=== PATIENT | female | born 1960 | race African-American/Black ===

== ENCOUNTER 2020-10-27 23:19 | Inpatient (IN) | payer MEDICAID, OTHER ==
[~2020-10-27] VITALS: Ht 172.7 cm; Wt 69.6 kg
[2020-10-28] MEDS ORDERED: SODIUM CHLORIDE 0.9% 1,000 ML IVB ONE (02:45)
[2020-10-28] MEDS ORDERED: InsuLIN REG 1unit/0.01ml Soln (100units/ml) IV ONE (03:00)
[2020-10-28 03:49] LABS: Alanine Aminotransferase 40 U/L (13-56); Albumin 2.5 g/dL (3.4-5.0); Amylase 86 U/L (25-115); Anion Gap 11 (5-15); Aspartate Aminotransferase 70 U/L (15-37); BUN/Creatinine Ratio 11.3; Blood Urea Nitrogen 12 mg/dL (7-18); Carbon Dioxide 20 mmol/L (21-32); Chloride 103 mmol/L (98-107); GFR African American 68 mL/min; GFR Non-African American 56 mL/min; Lipase 108 U/L (73-393); Magnesium 1.9 mg/dL (1.6-2.6); Potassium 4.8 mmol/L (3.5-5.1); Sodium 134 mmol/L (136-145)
[2020-10-28 03:50] LABS: Lactic Acid w/Reflex 4.9 mmol/L (0.4-2.0)
[2020-10-28 03:54] LABS: INR 1.21 (0.9-1.15); Partial Thromboplastin Time 21.1 sec (23.0-31.2)
[2020-10-28 03:56] LABS: Alkaline Phosphatase 195 U/L (45-117); Bilirubin, Total 1.9 mg/dL (0.2-1.0); Total Protein 7.6 g/dL (6.4-8.2)
[2020-10-28 04:20] LABS: Glucose 477 mg/dL (74-106)
[2020-10-28 04:21] LABS: Basophils # (auto) 0 10 ^3/uL (0-0.2); Basophils % (auto) 0.2 % (0.0-2.0); Eosinophils # (auto) 0 10 ^3/uL (0-0.8); Hematocrit 34.5 % (36.0-46.0); Hemoglobin 10.7 g/dL (12.2-16.2); Lymphocytes # (auto) 0.9 10 ^3/uL (0.4-5.4); Lymphocytes % (auto) 14.9 % (10.0-50.0); Mean Corpuscular Hemoglobin 25.1 pg (28.0-32.0); Mean Corpuscular Hgb Conc. 31.1 g/dL (32.0-36.0); Mean Corpuscular Volume 80.9 fL (80.0-100.0); Monocytes # (auto) 0.5 10 ^3/uL (0-1.3); Monocytes % (auto) 8.2 % (0.0-12.0); Neutrophils # (auto) 4.6 10 ^3/uL (1.6-8.6); Neutrophils % (auto) 76.7 % (37.0-80.0); Nucleated Red Blood Cells % 0.1 %; Red Blood Cells 4.27 10^6/uL (4.0-5.20); White Blood Cell 6.1 10^3/uL (4.4-10.8)
[2020-10-28 04:25] LABS: Urine Bacteria FEW /hpf (None Seen); Urine Blood Negative /uL (Negative); Urine Specific Gravity 1.033 (1.001-1.035); Urine WBC 13 /hpf (0 - 5)
[2020-10-28] MEDS ORDERED: cefTRIAXone 1GM/50ML D5W 50 ML IV ONE (05:30)
[2020-10-28] MEDS ORDERED: LORazepam 2MG/ML-1ML VIAL ONE (06:09)
[2020-10-28] MEDS ORDERED: LORazepam 2MG/ML-1ML VIAL IV ONE (06:15)
[2020-10-28] MEDS ORDERED: ONDANSETRON HCL 4 MG/2 ML VIAL IV PRN (07:15)
[2020-10-28] MEDS ORDERED: DEXTROSE (50%) 50ML SYRG IV PRN (07:15)
[2020-10-28] MEDS ORDERED: MORPHINE SULF INJ 2 MG/ML SYRINGE 1ML IV PRN (07:15)
[2020-10-28] MEDS ORDERED: hydrALAZINE HCL 20 MG/ML VL IV PRN (07:15)
[2020-10-28] MEDS ORDERED: NITROGLYCERIN 0.4 MG SL TAB SL PRN (07:15)
[2020-10-28] MEDS ORDERED: IBUPROFEN 100MG/5ML ORAL SUSP 100 MG/5 ML UD GT PRN (07:30)
[2020-10-28 08:21] LABS: Basophils # (auto) 0 10 ^3/uL (0-0.2); Eosinophils # (auto) 0 10 ^3/uL (0-0.8); Mean Corpuscular Hemoglobin 24.8 pg (28.0-32.0); Monocytes # (auto) 0.5 10 ^3/uL (0-1.3); Nucleated Red Blood Cells % 0.1 %; White Blood Cell 4.7 10^3/uL (4.4-10.8)
[2020-10-28 08:23] LABS: Basophils % (auto) 0.5 % (0.0-2.0); Eosinophils % (auto) 0.6 % (0.0-7.0); Hematocrit 31.4 % (36.0-46.0); Lymphocytes # (auto) 0.9 10 ^3/uL (0.4-5.4); Lymphocytes % (auto) 19.5 % (10.0-50.0); Mean Corpuscular Hgb Conc. 31.8 g/dL (32.0-36.0); Mean Corpuscular Volume 77.8 fL (80.0-100.0); Neutrophils # (auto) 3.2 10 ^3/uL (1.6-8.6); Neutrophils % (auto) 68.4 % (37.0-80.0); Red Blood Cells 4.04 10^6/uL (4.0-5.20); Red Cell Distribution Width 19.8 % (11.8-14.3)
[2020-10-28 08:28] LABS: Albumin 2.1 g/dL (3.4-5.0); Calcium 7.7 mg/dL (8.5-10.1); Potassium 3.3 mmol/L (3.5-5.1)
[2020-10-28 08:31] LABS: BUN/Creatinine Ratio 15.9; Bilirubin, Total 1.4 mg/dL (0.2-1.0); Total Protein 6.7 g/dL (6.4-8.2)
[2020-10-28] MEDS ORDERED: ENOXAPARIN SOD 40 MG/0.4 ML SYRINGE SC SCH (10:00)
[2020-10-28] MEDS: ASCORBIC ACID 500 MG TAB PO SCH ×2 (10:00→22:24)
[2020-10-28] MEDS: MULTIPLE VITAMIN TAB PO SCH (10:00)
[2020-10-28] MEDS: ZINC SULFATE 220mg CAP or TAB PO SCH (10:00)
[2020-10-28] MEDS: SODIUM CHLORIDE 0.9% 1,000 ML IV SCH (10:19)
[2020-10-28 11:57] LABS: Lactic Acid w/Reflex 2.4 mmol/L (0.4-2.0)
[2020-10-28] MEDS: LACTULOSE 20Gm/30ML SOLN PO SCH ×2 (12:00→20:26)
[2020-10-28] MEDS: InsuLIN REG 1unit/0.01ml Soln (100units/ml) SC SCH ×3 (12:49→22:00)
[2020-10-28] MEDS: ACCU-CHEK COMFORT CURVE STRIP VI SCH ×3 (12:57→22:14)
[2020-10-28] MEDS ORDERED: LORazepam 2MG/ML-1ML VIAL IM ONE (18:30)
[2020-10-28] MEDS ORDERED: diphenhdrAMINE HCL 50 MG/1 ML VL IM ONE (18:30)
[2020-10-28] MEDS ORDERED: HALOPERIDOL LACTATE 5 MG/ML INJ VIAL IM ONE (18:30)
[2020-10-29] MEDS: SODIUM CHLORIDE 0.9% 1,000 ML IV SCH (00:34)
[2020-10-29] MEDS: LACTULOSE 20Gm/30ML SOLN PO SCH ×5 (00:34→23:55)
[2020-10-29 05:26] LABS: Basophils # (auto) 0 10 ^3/uL (0-0.2); Basophils % (auto) 0.4 % (0.0-2.0); Eosinophils # (auto) 0 10 ^3/uL (0-0.8); Eosinophils % (auto) 1.1 % (0.0-7.0); Hematocrit 32.9 % (36.0-46.0); Hemoglobin 10.4 g/dL (12.2-16.2); Lymphocytes % (auto) 27.7 % (10.0-50.0); Mean Corpuscular Hemoglobin 24.9 pg (28.0-32.0); Mean Corpuscular Hgb Conc. 31.5 g/dL (32.0-36.0); Monocytes # (auto) 0.4 10 ^3/uL (0-1.3); Monocytes % (auto) 9.5 % (0.0-12.0); Neutrophils # (auto) 2.3 10 ^3/uL (1.6-8.6); Neutrophils % (auto) 61.3 % (37.0-80.0); Red Blood Cells 4.17 10^6/uL (4.0-5.20); Red Cell Distribution Width 19.5 % (11.8-14.3); White Blood Cell 3.7 10^3/uL (4.4-10.8)
[2020-10-29 06:11] LABS: Potassium 4.1 mmol/L (3.5-5.1)
[2020-10-29 06:13] LABS: Albumin 1.9 g/dL (3.4-5.0); BUN/Creatinine Ratio 17.2; Bilirubin, Total 1.6 mg/dL (0.2-1.0); Calcium 7.5 mg/dL (8.5-10.1); Total Protein 6.5 g/dL (6.4-8.2)
[2020-10-29] MEDS: InsuLIN REG 1unit/0.01ml Soln (100units/ml) SC SCH ×4 (07:02→21:46)
[2020-10-29] MEDS: ACCU-CHEK COMFORT CURVE STRIP VI SCH ×4 (07:03→21:31)
[2020-10-29] MEDS: cefTRIAXone 1GM/50ML D5W 50 ML IV SCH (12:33)
[2020-10-29] MEDS: MULTIPLE VITAMIN TAB PO SCH (12:35)
[2020-10-29] MEDS: ASCORBIC ACID 500 MG TAB PO SCH ×2 (12:35→21:31)
[2020-10-29] MEDS: ZINC SULFATE 220mg CAP or TAB PO SCH (12:35)
[2020-10-29] MEDS: LORazepam 2MG/ML-1ML VIAL IV PRN (12:35)
[2020-10-29] MEDS ORDERED: INSU100I43 SC (15:49)
[2020-10-29] MEDS ORDERED: RIFA550T PO (15:49)
[2020-10-29] MEDS ORDERED: INSU1INJ19 SC (15:49)
[2020-10-29] MEDS ORDERED: METF-370 PO (15:49)
[2020-10-29] MEDS ORDERED: CHOL100047 PO (15:49)
[2020-10-29] MEDS ORDERED: LOSA-69 PO (15:49)
[2020-10-29] MEDS ORDERED: LACT10SO70 PO (15:49)
[2020-10-29] MEDS ORDERED: RISP1TAB63 PO (15:49)
[2020-10-29 17:00] VITALS: BP 144/76
[2020-10-29 22:14] VITALS: BP 129/76
[2020-10-30 05:30] VITALS: BP 129/77
[2020-10-30] MEDS: LACTULOSE 20Gm/30ML SOLN PO SCH ×4 (06:00→21:30)
[2020-10-30] MEDS: ACCU-CHEK COMFORT CURVE STRIP VI SCH ×4 (06:12→21:30)
[2020-10-30] MEDS: InsuLIN REG 1unit/0.01ml Soln (100units/ml) SC SCH ×4 (06:12→21:43)
[2020-10-30 06:51] LABS: Albumin 1.9 g/dL (3.4-5.0); Calcium 7.5 mg/dL (8.5-10.1); Potassium 3.8 mmol/L (3.5-5.1)
[2020-10-30 06:54] LABS: BUN/Creatinine Ratio 14.3; Bilirubin, Total 1.4 mg/dL (0.2-1.0); Total Protein 6.4 g/dL (6.4-8.2)
[2020-10-30 07:10] LABS: Basophils # (auto) 0 10 ^3/uL (0-0.2); Eosinophils # (auto) 0 10 ^3/uL (0-0.8); Mean Corpuscular Volume 78.7 fL (80.0-100.0); Monocytes # (auto) 0.4 10 ^3/uL (0-1.3); Nucleated Red Blood Cells % 0.5 %; White Blood Cell 3.6 10^3/uL (4.4-10.8)
[2020-10-30 07:12] LABS: Basophils % (auto) 0.7 % (0.0-2.0); Eosinophils % (auto) 0.6 % (0.0-7.0); Hematocrit 33.1 % (36.0-46.0); Hemoglobin 10.4 g/dL (12.2-16.2); Lymphocytes % (auto) 29.1 % (10.0-50.0); Mean Corpuscular Hemoglobin 24.8 pg (28.0-32.0); Mean Corpuscular Hgb Conc. 31.5 g/dL (32.0-36.0); Monocytes % (auto) 11.9 % (0.0-12.0); Neutrophils # (auto) 2.1 10 ^3/uL (1.6-8.6); Neutrophils % (auto) 57.7 % (37.0-80.0); Red Cell Distribution Width 19.7 % (11.8-14.3)
[2020-10-30 09:00] VITALS: BP 103/50
[2020-10-30] MEDS: ZINC SULFATE 220mg CAP or TAB PO SCH (10:45)
[2020-10-30] MEDS: cefTRIAXone 1GM/50ML D5W 50 ML IV SCH (10:45)
[2020-10-30] MEDS: ASCORBIC ACID 500 MG TAB PO SCH ×2 (10:46→21:30)
[2020-10-30] MEDS: PANTOPRAZOLE 40 MG TAB PO SCH (10:46)
[2020-10-30] MEDS: MULTIPLE VITAMIN TAB PO SCH (10:46)
[2020-10-30] MEDS: NICOTINE 21MG/24 HR TOPICAL PATCH TD SCH (10:47)
[2020-10-30] MEDS: LORazepam 2MG/ML-1ML VIAL IV PRN (10:48)
[2020-10-30 13:00] VITALS: BP 100/56
[2020-10-30 17:00] VITALS: BP 109/57
[2020-10-30 22:00] VITALS: BP 142/79
[2020-10-31] MEDS: LACTULOSE 20Gm/30ML SOLN PO SCH ×4 (02:00→21:23)
[2020-10-31 05:00] VITALS: BP 143/74
[2020-10-31] MEDS: ACCU-CHEK COMFORT CURVE STRIP VI SCH ×4 (06:20→21:23)
[2020-10-31] MEDS: InsuLIN REG 1unit/0.01ml Soln (100units/ml) SC SCH ×4 (06:30→21:24)
[2020-10-31 06:37] LABS: Albumin 1.9 g/dL (3.4-5.0); Calcium 7.5 mg/dL (8.5-10.1); Potassium 3.8 mmol/L (3.5-5.1)
[2020-10-31 06:40] LABS: Total Protein 6.4 g/dL (6.4-8.2)
[2020-10-31] MEDS: cefTRIAXone 1GM/50ML D5W 50 ML IV SCH (09:42)
[2020-10-31] MEDS: NICOTINE 21MG/24 HR TOPICAL PATCH TD SCH (09:43)
[2020-10-31] MEDS: PANTOPRAZOLE 40 MG TAB PO SCH (09:43)
[2020-10-31] MEDS: ASCORBIC ACID 500 MG TAB PO SCH ×2 (09:43→21:23)
[2020-10-31] MEDS: MULTIPLE VITAMIN TAB PO SCH (09:43)
[2020-10-31] MEDS: rifAXIMin 550 MG TAB PO SCH (21:23)
[2020-10-31 22:00] VITALS: BP 140/71
[2020-11-01 05:00] VITALS: BP 115/64
[2020-11-01] MEDS: LACTULOSE 20Gm/30ML SOLN PO SCH ×3 (05:32→21:42)
[2020-11-01] MEDS: InsuLIN REG 1unit/0.01ml Soln (100units/ml) SC SCH ×4 (05:49→21:51)
[2020-11-01] MEDS: ACCU-CHEK COMFORT CURVE STRIP VI SCH ×4 (05:50→21:43)
[2020-11-01 06:22] LABS: Basophils # (auto) 0 10 ^3/uL (0-0.2); Eosinophils # (auto) 0 10 ^3/uL (0-0.8); Hemoglobin 11.1 g/dL (12.2-16.2); Monocytes # (auto) 0.5 10 ^3/uL (0-1.3); Monocytes % (auto) 9.6 % (0.0-12.0); Nucleated Red Blood Cells % 0.2 %; White Blood Cell 5.5 10^3/uL (4.4-10.8)
[2020-11-01 06:25] LABS: Basophils % (auto) 0.4 % (0.0-2.0); Eosinophils % (auto) 0.6 % (0.0-7.0); Hematocrit 34.8 % (36.0-46.0); Lymphocytes # (auto) 1.2 10 ^3/uL (0.4-5.4); Lymphocytes % (auto) 22.3 % (10.0-50.0); Mean Corpuscular Hemoglobin 25.1 pg (28.0-32.0); Mean Corpuscular Hgb Conc. 31.9 g/dL (32.0-36.0); Mean Corpuscular Volume 78.7 fL (80.0-100.0); Neutrophils # (auto) 3.7 10 ^3/uL (1.6-8.6); Neutrophils % (auto) 67.1 % (37.0-80.0); Red Blood Cells 4.43 10^6/uL (4.0-5.20); Red Cell Distribution Width 19.6 % (11.8-14.3)
[2020-11-01 06:50] LABS: Calcium 7.6 mg/dL (8.5-10.1); Potassium 3.7 mmol/L (3.5-5.1)
[2020-11-01 06:53] LABS: BUN/Creatinine Ratio 7.6; Bilirubin, Total 1.2 mg/dL (0.2-1.0); Total Protein 6.8 g/dL (6.4-8.2)
[2020-11-01 08:55] VITALS: BP 121/60
[2020-11-01] MEDS: NICOTINE 21MG/24 HR TOPICAL PATCH TD SCH (10:00)
[2020-11-01] MEDS: rifAXIMin 550 MG TAB PO SCH ×2 (10:02→21:43)
[2020-11-01] MEDS: PANTOPRAZOLE 40 MG TAB PO SCH (10:02)
[2020-11-01] MEDS: ASCORBIC ACID 500 MG TAB PO SCH ×2 (10:02→21:43)
[2020-11-01] MEDS: MULTIPLE VITAMIN TAB PO SCH (10:02)
[2020-11-01] MEDS: cefTRIAXone 1GM/50ML D5W 50 ML IV SCH (10:02)
[2020-11-01 14:08] VITALS: BP 135/65
[2020-11-01 16:36] VITALS: BP 131/67
[2020-11-01] MEDS: MORPHINE SULF INJ 2 MG/ML SYRINGE 1ML IV PRN (20:52)
[2020-11-01 22:00] VITALS: BP 141/64
[2020-11-02] MEDS: LORazepam 2MG/ML-1ML VIAL IV PRN ×2 (00:11→09:11)
[2020-11-02 05:00] VITALS: BP_SYST 119; BP_SYST 198; BP_DIAS 56; BP_DIAS 65
[2020-11-02] MEDS: LACTULOSE 20Gm/30ML SOLN PO SCH ×3 (06:00→21:32)
[2020-11-02] MEDS: ACCU-CHEK COMFORT CURVE STRIP VI SCH ×4 (06:33→22:02)
[2020-11-02] MEDS: InsuLIN REG 1unit/0.01ml Soln (100units/ml) SC SCH ×4 (06:33→22:26)
[2020-11-02] MEDS: ASCORBIC ACID 500 MG TAB PO SCH ×2 (08:50→21:32)
[2020-11-02] MEDS: cefTRIAXone 1GM/50ML D5W 50 ML IV SCH (08:50)
[2020-11-02] MEDS: PANTOPRAZOLE 40 MG TAB PO SCH (08:51)
[2020-11-02] MEDS: rifAXIMin 550 MG TAB PO SCH ×2 (08:51→21:37)
[2020-11-02] MEDS: MULTIPLE VITAMIN TAB PO SCH (08:51)
[2020-11-02] MEDS: MORPHINE SULF INJ 2 MG/ML SYRINGE 1ML IV PRN ×2 (08:55→17:33)
[2020-11-02 08:56] VITALS: BP 129/75
[2020-11-02] MEDS: NICOTINE 21MG/24 HR TOPICAL PATCH TD SCH (09:04)
[2020-11-02 10:15] LABS: Basophils # (auto) 0 10 ^3/uL (0-0.2); Basophils % (auto) 0.3 % (0.0-2.0); Eosinophils # (auto) 0 10 ^3/uL (0-0.8); Monocytes # (auto) 0.5 10 ^3/uL (0-1.3)
[2020-11-02 10:17] LABS: Eosinophils % (auto) 0.8 % (0.0-7.0); Hematocrit 36.2 % (36.0-46.0); Hemoglobin 11.8 g/dL (12.2-16.2); Lymphocytes # (auto) 1.4 10 ^3/uL (0.4-5.4); Lymphocytes % (auto) 23.6 % (10.0-50.0); Mean Corpuscular Hemoglobin 25.8 pg (28.0-32.0); Mean Corpuscular Hgb Conc. 32.5 g/dL (32.0-36.0); Mean Corpuscular Volume 79.2 fL (80.0-100.0); Monocytes % (auto) 8.7 % (0.0-12.0); Neutrophils # (auto) 3.9 10 ^3/uL (1.6-8.6); Neutrophils % (auto) 66.6 % (37.0-80.0); Nucleated Red Blood Cells % 0.3 %; Red Blood Cells 4.58 10^6/uL (4.0-5.20); White Blood Cell 5.8 10^3/uL (4.4-10.8)
[2020-11-02 10:20] LABS: Red Cell Distribution Width 20.3 % (11.8-14.3)
[2020-11-02 10:47] LABS: BUN/Creatinine Ratio 6.7; Potassium 3.8 mmol/L (3.5-5.1)
[2020-11-02 13:00] VITALS: BP 149/72
[2020-11-02 17:00] VITALS: BP 118/60
[2020-11-03] MEDS: MORPHINE SULF INJ 2 MG/ML SYRINGE 1ML IV PRN ×4 (01:57→23:12)
[2020-11-03 05:00] VITALS: BP 138/66
[2020-11-03] MEDS: LACTULOSE 20Gm/30ML SOLN PO SCH ×3 (05:33→23:10)
[2020-11-03] MEDS: ACCU-CHEK COMFORT CURVE STRIP VI SCH ×4 (06:26→23:11)
[2020-11-03] MEDS: InsuLIN REG 1unit/0.01ml Soln (100units/ml) SC SCH ×4 (06:30→23:11)
[2020-11-03 09:00] VITALS: BP 121/62
[2020-11-03] MEDS: cefTRIAXone 1GM/50ML D5W 50 ML IV SCH (09:29)
[2020-11-03] MEDS: MULTIPLE VITAMIN TAB PO SCH (09:29)
[2020-11-03] MEDS: PANTOPRAZOLE 40 MG TAB PO SCH (09:30)
[2020-11-03] MEDS: ASCORBIC ACID 500 MG TAB PO SCH ×2 (09:30→23:10)
[2020-11-03] MEDS: rifAXIMin 550 MG TAB PO SCH ×2 (09:30→23:10)
[2020-11-03] MEDS: NICOTINE 21MG/24 HR TOPICAL PATCH TD SCH (10:00)
[2020-11-03] MEDS: INSULIN LANTUS (GLARGINE) 1 /0.01ml (100units/ml) SC SCH (11:48)
[2020-11-03 13:00] VITALS: BP 113/57
[2020-11-03 17:07] VITALS: BP 124/70
[2020-11-04] MEDS: MORPHINE SULF INJ 2 MG/ML SYRINGE 1ML IV PRN ×2 (03:46→09:30)
[2020-11-04] MEDS: ACCU-CHEK COMFORT CURVE STRIP VI SCH ×2 (06:26→11:38)
[2020-11-04] MEDS: LACTULOSE 20Gm/30ML SOLN PO SCH ×2 (06:26→14:39)
[2020-11-04] MEDS: INSULIN LANTUS (GLARGINE) 1 /0.01ml (100units/ml) SC SCH (06:33)
[2020-11-04] MEDS: InsuLIN REG 1unit/0.01ml Soln (100units/ml) SC SCH ×2 (06:37→11:39)
[2020-11-04] MEDS: rifAXIMin 550 MG TAB PO SCH (09:30)
[2020-11-04] MEDS: ASCORBIC ACID 500 MG TAB PO SCH (09:30)
[2020-11-04] MEDS: MULTIPLE VITAMIN TAB PO SCH (09:30)
[2020-11-04] MEDS: PANTOPRAZOLE 40 MG TAB PO SCH (09:30)
[2020-11-04] MEDS: NICOTINE 21MG/24 HR TOPICAL PATCH TD SCH (09:31)
[2020-11-04 11:41] VITALS: BP 121/64
== END 2020-11-04 16:40 | disposition home health service (06) | DRG 52 ==
LOC: ER 23:19 → TELE 10-28 07:06 → TELE-WESTW 10-29 15:34
PROVIDERS: ADMIT Nurse Practitioner Family; ATTEND Internal Medicine Pulmonary Disease
DX: G93.41 Metabolic encephalopathy (principal); E43 Unspecified severe protein-calorie malnutrition; K72.90 Hepatic failure, unspecified without coma; E87.2 Acidosis; K70.30 Alcoholic cirrhosis of liver without ascites; E86.0 Dehydration; E11.65 Type 2 diabetes mellitus with hyperglycemia; E88.09 Other disorders of plasma-protein metabolism, not elsewhere classified; N39.0 Urinary tract infection, site not specified; I10 Essential (primary) hypertension; J98.11 Atelectasis; K76.9 Liver disease, unspecified; Z20.822 Contact with and (suspected) exposure to COVID-19; E03.9 Hypothyroidism, unspecified; J44.9 Chronic obstructive pulmonary disease, unspecified; Z68.23 Body mass index [BMI] 23.0-23.9, adult
CPT/HCPCS: 36415; 70450; 71045; 76705; 80048; 80053; 81001; 82140; 82150; 82962; 83036; 83605; 83690; 83735; 84443; 84484; 85025; 85610; 85730; 87086; 87426; 93005; 96361; 96365; 96372; 96375; 97163; 97530; G0378; J0696; J1815